=== PATIENT | male | born 1975 | race Caucasian/White ===

== ENCOUNTER 2023-09-09 08:04 | Outpatient (CLI) | payer OTHER, SELFPAY ==
--- NOTE | ~2023-09-09 | CT_ITS ---
CT of the Abdomen and Pelvis: Indication: Abdominal pain Technique: 2.5 mm axial scans were obtained through the abdomen and pelvis following intravenous adm inistration of 100 cc of Omnipaque 350. Dose reduction technique was used on this scan by utilizing a utomated exposure control and iterative reconstruction technique. The dose-length product (DLP) was 9 54.01 mGy-cm. Findings: Scans through the lung bases are unremarkable. There is diffuse fatty infiltration of the liver. The spleen, pancreas, gallbladder, adrenals and kid neys are within normal limits. No evidence of aortic aneurysm. No lymphadenopathy. No bowel obstruction or bowel wall thickening. Normal appendix. Images through the pelvis were performed. Urinary bladder unremarkable. Prostate gland and seminal ve sicles are unremarkable. No ascites. Impression: No acute abnormality. Diffuse fatty infiltration of the liver. Reviewed, dictated and finalized at [facility]. Impression: No acute abnormality. Diffuse fatty infiltration of the liver.
== END 2023-09-09 08:05 ==
LOC: MICIMG 08:06
PROVIDERS: PCP Physician Assistant Medical; Visit Provider Physician Assistant Medical
DX: R10.31 Right lower quadrant pain (principal); K76.0 Fatty (change of) liver, not elsewhere classified
CPT/HCPCS: 74177; Q9967